=== PATIENT | male | born 1960 | race Caucasian/White ===

== ENCOUNTER 2020-11-08 11:46 | Emergency (ER) | payer OTHER, BC, SELFPAY ==
[2020-11-08 11:51] VITALS: BP 165/101; PULSE 86; RESP 18; TEMP 36.2; O2SAT 98
[2020-11-08 13:36] VITALS: BP 178/106; PULSE 67; RESP 17; O2SAT 96
[2020-11-08] MEDS: TETANUS,DIPHTHERIA,AC PERTUSSIS ADULT (0.5 ML) BOOSTRIX IM (13:42)
--- NOTE | 2020-11-08 14:19 | ED.WOUNDLAC ---
HPI - Wound/Laceration General Chief Complaint: Wound/Laceration Stated Complaint: L 2nd digit Lac Time Seen by Provider: 11/08/20 13:12 Source: patient Mode of arrival: ambulatory Limitations: no limitations History of Present Illness HPI narrative: This is a 60-year-old male who presents to the emergency department for left second finger laceration sustained just prior to arrival. Reports he was at work cleaning out a machine. Reports he sustained a laceration from metal. He is not up-to-date on tetanus. Denies decreased range of motion or numbness. Related Data Allergies Allergy/AdvReac Type Severity Reaction Status Date / Time No Known Allergies Allergy Verified 11/08/20 13:37 Review of Systems Review of Systems: Narrative: CONSTITUTIONAL: Denies fever SKIN: Reports laceration MUSCULOSKELETAL: Denies joint pain, or myalgia. NEUROLOGIC: Denies numbness All systems reviewed & are unremarkable except as noted in HPI and below PMFSH Past Medical History Medical History (Updated 11/08/20 @ 15:24 by Maeve Patton PA-C) History of gastroesophageal reflux (GERD) Social History Social History (Updated 11/08/20 @ 14:21 by Maeve Patton PA-C) Smoking status: Former smoker Gender identity (if verbalized by the patient): Male Exam Narrative: Exam Narrative: GENERAL: Well-appearing, well-nourished, and in no acute distress. HEAD: Normocephalic, atraumatic. EYES: EOMI. EXTREMITIES: Normal range of motion. No edema. Normal sensation. Left second finger with 1.5 cm linear laceration into subcutaneous tissue over PIP joint on the dorsal surface SKIN: Warm, dry, no rash. NEURO: No focal deficits. Alert and oriented x3. PSYCH: Normal mood and affect Course Vital Signs Vital signs: Vital Signs Temperature 97.2 F L 11/08/20 11:51 Pulse Rate 86 11/08/20 11:51 Respiratory Rate 18 11/08/20 11:51 Blood Pressure 165/101 H 11/08/20 11:51 Pulse Oximetry 98 11/08/20 11:51 Temperature 97.2 F L 11/08/20 11:51 Pulse Rate 67 11/08/20 13:36 Respiratory Rate 17 11/08/20 13:36 Blood Pressure 178/106 H 11/08/20 13:36 Pulse Oximetry 96 11/08/20 13:36 Procedures Laceration Laceration 1: Date: 11/08/20 Time: 15:23 Site: hand Side (If applicable): left Size (cm): 1.5 Description: linear Depth: simple, single layer Local Anesthetic: lidocaine 1% Amount of anesthesia used (mL): 4 Pre-repair: wound explored and irrigated ====== Skin Level ====== Skin layer closed with: nylon Size (cm): 4-0 Number of sutures: 2 Technique: simple, interrupted ====== Subcutaneous Layer ====== ====== Muscle Layer ====== ====== Tendon Layer ====== MDM - Wound/Laceration MDM Narrative Medical decision making narrative: Patient presents the emergency department for laceration to the left second digit sustained just prior to arrival. Laceration was irrigated and closed with sutures. Patient was updated on tetanus. He was educated on wound care. He is to follow-up with primary care doctor. He was given warnings to return to the ER Critical Care Time Critical Care Time Critical Care Time: No Discharge Plan Discharge Clinical Impression: Laceration Patient Disposition: Home, Self-Care Condition: Stable Instructions: Antibiotic Form, Care For Your Stitches (ED), Laceration (ED) Additional Instructions: Return to the emergency department if you experience fever, redness or swelling of your wound, abnormal drainage from your wound, or any other symptoms that are concerning to you. Take oral biotic as prescribed. Apply antibiotic ointment daily. Do not soak the wound. Clean with mild soap and water daily Follow-up with your primary care doctor for suture removal in 10-14 days. Prescriptions: New cephalexin 500 mg capsule 500 mg PO Q8H 5 Days Qty: 15 RF: 0 Follow-up/Ref
[2020-11-08 15:51] VITALS: BP 175/90; PULSE 72; RESP 17; O2SAT 100
--- NOTE | 2020-11-25 08:39 | PC.NURSE ---
LATE ENTRY This note is being entered to document information to the patient's record. The following information was omitted on [11/08/20], by [Adriana Barton RN Patient's wound should be on left ring finger].
== END 2020-11-08 15:52 | disposition home or self-care (01) ==
PROVIDERS: Emergency Provider Emergency Medicine
DX: S61.211A Laceration without foreign body of left index finger without damage to nail, initial encounter (principal); Z23 Encounter for immunization; K21.9 Gastro-esophageal reflux disease without esophagitis; Z87.891 Personal history of nicotine dependence; W26.8XXA Contact with other sharp object(s), not elsewhere classified, initial encounter
CPT/HCPCS: 12001; 90471; 90715; 99283